=== PATIENT | female | born 1980 | race Hispanic/Latino ===

== ENCOUNTER 2017-08-31 11:42 | Emergency (ER) | payer SELFPAY ==
[2017-08-31 11:47] VITALS: BP 103/72; PULSE 99; RESP 18; TEMP 98.2; O2SAT 97
--- NOTE | 2017-08-31 12:10 | C.PDOC ---
History Of Present Illness 37 year old female is brought in the ED by ambulance for medical clearance. Patients states she got into an argument with a counselor at her skilled nursing center and started feeling like she was having a panic attack. Patient denies SI /HI, auditory or visual hallucinations, other associated symptoms at this time. Patient is calm and cooperative while in the ED. Time Seen by Provider: 08/31/17 11:45 Chief Complaint (Nursing): Medical Clearance History Per: Patient History/Exam Limitations: no limitations Onset/Duration Of Symptoms: Hrs Current Symptoms Are (Timing): Gone Severity: None Recent travel outside of the [place]: No Additional History Per: Patient Past Medical History Reviewed: Historical Data, Nursing Documentation, Vital Signs Vital Signs: Last Vital Signs Temp 98.2 F 08/31/17 11:46 Pulse 99 H 08/31/17 11:46 Resp 18 08/31/17 11:46 BP 103/72 08/31/17 11:46 Pulse Ox 97 08/31/17 12:11 - Medical History PMH: Anxiety, Depression, Post Traumatic Stress Disorder Surgical History: Appendectomy Family History: States: Unknown Family Hx - Social History Hx Alcohol Use: Yes Hx Substance Use: Yes (opiates) - Immunization History Hx Tetanus Toxoid Vaccination: No Hx Influenza Vaccination: No Hx Pneumococcal Vaccination: No Review Of Systems Constitutional: Negative for: Fever, Chills Cardiovascular: Negative for: Chest Pain, Palpitations Respiratory: Negative for: Cough, Shortness of Breath Gastrointestinal: Negative for: Nausea, Vomiting, Abdominal Pain Skin: Negative for: Rash Neurological: Negative for: Weakness, Numbness Psych: Negative for: Depression, Suicidal ideation Physical Exam - Physical Exam Appears: Non-toxic, Other (Little anxious) Skin: Normal Color, Warm, Dry Head: Atraumatic, Normacephalic Nose: No Discharge, No Deformity Oral Mucosa: Moist, No Drooling Throat: Normal, No Erythema, No Exudate Neck: Normal ROM, Supple Chest: Symmetrical Cardiovascular: Rhythm Regular, No Murmur Respiratory: Normal Breath Sounds, No Rales, No Rhonchi, No Wheezing Gastrointestinal/Abdominal: Soft, No Tenderness, No Mass, No Distention, No Guarding, No Rebound Extremity: Normal ROM, No Calf Tenderness, No Deformity, No Swelling Neurological/Psych: Oriented x3, Normal Speech, Normal Cognition Gait: Steady ED Course And Treatment O2 Sat by Pulse Oximetry: 97 (On RA) Pulse Ox Interpretation: Normal Progress Note: Plan: - Xanax 0.5 mg PO given Disposition - Disposition Disposition: OTHER INSTITUTION Condition: STABLE Instructions: Anxiety (ED) Forms: [facility] (Swiss) - Clinical Impression Clinical Impression: Anxiety - Scribe Statement The provider has reviewed the documentation as recorded by the Scribe Italo Barragan All medical record entries made by the Scribe were at my direction and personally dictated by me. I have reviewed the chart and agree that the record accurately reflects my personal performance of the history, physical exam, medical decision making, and the department course for this patient. I have also personally directed, reviewed, and agree with the discharge instructions and disposition.
== END 2017-08-31 12:55 | disposition home or self-care (01) ==
LOC: C.ER 11:42
DX: F41.9 Anxiety disorder, unspecified (principal)